=== PATIENT | female | born 1985 | race Caucasian/White ===

== ENCOUNTER 2017-07-25 17:45 | Emergency (ER) | payer MEDICAID ==
[~2017-07-25] VITALS: Ht 170.2 cm; Wt 104.2 kg
[~2017-07-25 17:45] MED LIST: ACYC5CRE2 TP; ALBU8HFA PO; CEPH500T PO; DIPH-423 PO; FLO110IN IH; FLUO20CA39 PO; HYDR-3717 PO; HYDR-565 PO; IBUP-24 PO; NITR100C6 PO; NORCO10T PO; OMEP20CA4 PO; ONDA8TAB6 PO; ONDA8TAB9 PO; ZOF4T PO
[2017-07-25] MEDS ORDERED: ACYC5CRE2 TP (18:12)
[2017-07-25] MEDS ORDERED: ACYC-202 PO (18:12)
[2017-07-25] MEDS ORDERED: GABA300C PO (18:13)
[2017-07-25] MEDS ORDERED: TRIF7.5D6 EACHEYE (18:13)
[2017-07-25 18:21] VITALS: BP 204/108
== END 2017-07-25 18:20 | disposition home or self-care (01) ==
LOC: ER 17:46
DX: B02.7 Disseminated zoster (principal); B02.23 Postherpetic polyneuropathy; J45.909 Unspecified asthma, uncomplicated; C56.9 Malignant neoplasm of unspecified ovary; C50.919 Malignant neoplasm of unspecified site of unspecified female breast; Z90.710 Acquired absence of both cervix and uterus; Z88.0 Allergy status to penicillin; Z88.2 Allergy status to sulfonamides; Z88.1 Allergy status to other antibiotic agents; Z88.8 Allergy status to other drugs, medicaments and biological substances; Z79.899 Other long term (current) drug therapy; Z56.0 Unemployment, unspecified
CPT/HCPCS: 99283

== ENCOUNTER 2018-05-21 23:52 | Emergency (ER) | payer MEDICAID ==
[~2018-05-21] VITALS: Ht 170.2 cm; Wt 94.0 kg
[~2018-05-21 23:52] MED LIST changes: +GABA300C PO; +HYDR-4353 PO; -HYDR-565 PO; +TRIF7.5D6 EACHEYE
[2018-05-21 23:55] VITALS: BP 184/119
[2018-05-22] MEDS ORDERED: CLIN150C8 PO (00:14)
[2018-05-22] MEDS ORDERED: HYDR-4383 PO (00:14)
[2018-05-22] MEDS ORDERED: HYDROcodone/acetaminophen 5mg/325mg tablet PO ONE (00:15)
[2018-05-22] MEDS ORDERED: clindamycin 150mg capsule PO ONE (00:15)
[2018-05-22] MEDS ORDERED: ondansetron 4mg rapidly disintigrating tab PO ONE (00:30)
== END 2018-05-22 01:04 | disposition home or self-care (01) ==
LOC: ER 23:53
DX: K04.7 Periapical abscess without sinus (principal); J45.909 Unspecified asthma, uncomplicated; Z88.0 Allergy status to penicillin; Z88.2 Allergy status to sulfonamides; Z88.1 Allergy status to other antibiotic agents; Z88.8 Allergy status to other drugs, medicaments and biological substances; Z79.899 Other long term (current) drug therapy; Z56.0 Unemployment, unspecified; Z85.3 Personal history of malignant neoplasm of breast; Z85.43 Personal history of malignant neoplasm of ovary; Z85.41 Personal history of malignant neoplasm of cervix uteri; Z90.710 Acquired absence of both cervix and uterus
CPT/HCPCS: 99284

== ENCOUNTER 2018-09-30 01:14 | Emergency (ER) | payer MEDICAID ==
[~2018-09-30] VITALS: Ht 170.2 cm; Wt 85.5 kg
[~2018-09-30 01:14] MED LIST changes: +CLIN150C8 PO; +HYDR-4383 PO
[2018-09-30 01:40] LABS: BASOPHILS # (AUTO) 0.1 X10'3 (0-0.2); BASOPHILS % (AUTO) 0.8 % (0-1); EOSINOPHILS # (AUTO) 0.1 X10'3 (0-0.9); EOSINOPHILS % (AUTO) 1.1 % (0-6); HEMATOCRIT 41.3 % (35.0-45.0); HEMOGLOBIN 14.3 g/dl (12.0-16.0); LYMPHOCYTES # (AUTO) 2.6 X10'3 (1.1-4.8); MEAN CORPUSCULAR HEMOGLOBIN 30.7 PG (27.0-31.0); MEAN CORPUSCULAR HGB CONC 34.6 g/dL (33.0-36.5); MEAN CORPUSCULAR VOLUME 88.5 FL (78-98); MEAN PLATELET VOLUME 7.3 FL (7.4-10.4); MONOCYTES # (AUTO) 0.7 X10'3 (0-0.9); MONOCYTES % (AUTO) 6.9 % (2-12); NEUTROPHILS # (AUTO) 7.2 X10'3 (1.8-7.7); NEUTROPHILS % (AUTO) 67.2 % (42-75); PLATELET COUNT 321 X10'3 (140-440); RED BLOOD COUNT 4.66 X10'6 (4.20-5.60); RED CELL DISTRIBUTION WIDTH 12.4 % (11.5-14.5); WHITE BLOOD COUNT 10.8 X10'3 (4.5-11.0)
[2018-09-30 01:53] LABS: PARTIAL THROMBOPLASTIN TIME 27 SECONDS (22-32); PROTHROMBIN TIME 9.8 SECONDS (9.0-12.0)
[2018-09-30 01:57] LABS: ALANINE AMINOTRANSFERASE 20 U/L (12-78); ALBUMIN 3.6 G/DL (3.4-5.0); ALKALINE PHOSPHATASE 97 IU/L (46-116); ANION GAP 7 (8-16); ASPARTATE AMINO TRANSFERASE 11 U/L (10-37); BILIRUBIN,TOTAL 0.2 MG/DL (0.1-1.0); BLOOD UREA NITROGEN 14 MG/DL (7-18); BUN/CREATININE RATIO 15.2 (6.6-38.0); CALCIUM 8.9 MG/DL (8.5-10.1); CHLORIDE 106 MMOL/L (99-107); CREATININE 0.92 MG/DL (0.40-0.90); GLUCOSE 158 MG/DL (70-104); POTASSIUM 3.4 MMOL/L (3.5-5.1); SODIUM 141 MMOL/L (135-145); TOTAL CARBON DIOXIDE 27.7 MMOL/L (24-32); TOTAL PROTEIN 7.1 G/DL (6.4-8.2); eGFR 70 ML/MIN
[2018-09-30] MEDS ORDERED: ketorolac trometh inj. 60 MG/2 ML VIAL IM ONE (02:35)
[2018-09-30] MEDS ORDERED: acetaminophen 325mg tablet PO ONE (02:35)
[2018-09-30 02:43] LABS: D-DIMER < 0.19 MG/L FEU (0-0.50)
[2018-09-30 03:09] VITALS: BP 156/110
== END 2018-09-30 03:11 | disposition home or self-care (01) ==
LOC: ER 01:15
DX: R07.89 Other chest pain (principal); R55 Syncope and collapse; R42 Dizziness and giddiness; J45.909 Unspecified asthma, uncomplicated; Z90.710 Acquired absence of both cervix and uterus; Z56.0 Unemployment, unspecified; Z85.3 Personal history of malignant neoplasm of breast; Z85.43 Personal history of malignant neoplasm of ovary; Z87.898 Personal history of other specified conditions; Z88.0 Allergy status to penicillin; Z88.2 Allergy status to sulfonamides; Z88.1 Allergy status to other antibiotic agents; Z88.8 Allergy status to other drugs, medicaments and biological substances; Z79.899 Other long term (current) drug therapy
CPT/HCPCS: 36415; 71045; 80053; 84484; 85025; 85379; 85610; 85730; 93005; 96372; 99284; J1885

== ENCOUNTER 2019-03-30 02:25 | Emergency (ER) | payer MEDICAID, OTHER ==
[~2019-03-30] VITALS: Ht 170.2 cm; Wt 101.0 kg
[2019-03-30] MEDS ORDERED: ondansetron/PF 4mg/2ml inj IV ONE (02:50)
[2019-03-30] MEDS ORDERED: morphine 10mg/ml inj. IV ONE (02:50)
[2019-03-30] MEDS ORDERED: diphenhydrAMINE 50 mg/ml inj IV ONE (03:05)
--- NOTE | 2019-03-30 03:07 | NUR ---
piv in place, labs drawn, given morphine 8 mg, zofran 4 mg and benedryl 25 mg 9pt reports she gets very itchy w/morphine). pts neighbor remains at bedside. pt is calm and no longer crying and eyes closed lying on the bed. states she still feels the pain but is much improved.
[2019-03-30 03:09] LABS: BASOPHILS # (AUTO) 0.1 X10'3 (0-0.2); BASOPHILS % (AUTO) 1.1 % (0-1); EOSINOPHILS # (AUTO) 0.2 X10'3 (0-0.9); EOSINOPHILS % (AUTO) 1.9 % (0-6); HEMATOCRIT 42.3 % (35.0-45.0); HEMOGLOBIN 14.6 g/dl (12.0-16.0); LYMPHOCYTES # (AUTO) 2.7 X10'3 (1.1-4.8); LYMPHOCYTES % (AUTO) 21.7 % (21-51); MEAN CORPUSCULAR HEMOGLOBIN 30.3 PG (27.0-31.0); MEAN CORPUSCULAR HGB CONC 34.4 g/dL (33.0-36.5); MEAN CORPUSCULAR VOLUME 88.1 FL (78-98); MEAN PLATELET VOLUME 7.3 FL (7.4-10.4); MONOCYTES # (AUTO) 0.6 X10'3 (0-0.9); NEUTROPHILS # (AUTO) 8.6 X10'3 (1.8-7.7); NEUTROPHILS % (AUTO) 70.3 % (42-75); PLATELET COUNT 333 X10'3 (140-440); RED BLOOD COUNT 4.81 X10'6 (4.20-5.60); RED CELL DISTRIBUTION WIDTH 12.8 % (11.5-14.5); WHITE BLOOD COUNT 12.3 X10'3 (4.5-11.0)
[2019-03-30 03:22] LABS: ALANINE AMINOTRANSFERASE 33 U/L (12-78); ALBUMIN 3.6 G/DL (3.4-5.0); ALBUMIN/GLOBULIN RATIO 0.9 (1.1-1.5); ALKALINE PHOSPHATASE 97 IU/L (46-116); ANION GAP 8 (8-16); ASPARTATE AMINO TRANSFERASE 20 U/L (10-37); BILIRUBIN,TOTAL 0.3 MG/DL (0.1-1.0); BLOOD UREA NITROGEN 10 MG/DL (7-18); CALCIUM 8.8 MG/DL (8.5-10.1); CHLORIDE 104 MMOL/L (99-107); CREATININE 0.77 MG/DL (0.40-0.90); GLUCOSE 142 MG/DL (70-104); POTASSIUM 3.7 MMOL/L (3.5-5.1); SODIUM 139 MMOL/L (135-145); TOTAL CARBON DIOXIDE 26.9 MMOL/L (24-32); TOTAL PROTEIN 7.5 G/DL (6.4-8.2); eGFR 85 ML/MIN
[2019-03-30 04:30] VITALS: BP 134/72
[2019-03-30] MEDS ORDERED: ONDA4TAB6 PO (04:50)
[2019-03-30] MEDS ORDERED: KETO10TA2 PO (04:50)
[2019-03-30 05:50] LABS: CLARITY,URINE CLOUDY (Clear); COLOR,URINE STRAW (Yellow); GLUCOSE, URINE NEGATIVE (Neg); KETONES,URINE NEGATIVE (Neg); LEUKOCYTE ESTERASE ,URINE NEGATIVE (Neg); NITRITES, URINE NEGATIVE (Neg); OCCULT BLOOD,URINE MODERATE (Neg); PROTEIN,URINE NEGATIVE (Neg); UROBILINOGEN,URINE 0.2 E.U/dL (0.2-1.0)
[2019-03-30 05:55] LABS: MUCUS STRANDS MODERATE /LPF (Neg); SQUAMOUS EPITHELIAL CELL,UR MANY /LPF (FEW); UA COLLECTION TYPE CLN CATCH MIDSTREAM
[2019-03-30 05:56] LABS: BACTERIA,URINE 2+ /HPF (Neg); RBC,URINE 0-2 /HPF (0-2); WBC,URINE 0-4 /HPF (0-4)
== END 2019-03-30 05:30 | disposition home or self-care (01) ==
LOC: ER 02:25
DX: N20.1 Calculus of ureter (principal); J45.909 Unspecified asthma, uncomplicated; F41.9 Anxiety disorder, unspecified; F32.9 Major depressive disorder, single episode, unspecified; C50.919 Malignant neoplasm of unspecified site of unspecified female breast; C53.9 Malignant neoplasm of cervix uteri, unspecified; C56.9 Malignant neoplasm of unspecified ovary; Z90.710 Acquired absence of both cervix and uterus; Z56.0 Unemployment, unspecified; Z88.0 Allergy status to penicillin; Z88.2 Allergy status to sulfonamides; Z88.8 Allergy status to other drugs, medicaments and biological substances; Z79.2 Long term (current) use of antibiotics; Z79.899 Other long term (current) drug therapy
CPT/HCPCS: 36415; 74176; 80053; 81001; 85025; 85610; 96374; 96375; 99284; J1200; J2270; J2405

== ENCOUNTER 2019-06-17 16:21 | Emergency (ER) | payer MEDICAID, OTHER ==
[~2019-06-17] VITALS: Ht 171.4 cm; Wt 100.9 kg
[~2019-06-17 16:21] MED LIST changes: +KETO10TA2 PO; +LIDOcaine 1% W/epiNEPHrine 1:100,000 20ml vial ONE; +ONDA4TAB6 PO
[2019-06-17 16:53] VITALS: BP 172/111
== END 2019-06-17 18:30 | disposition home or self-care (01) ==
LOC: ER 16:22
DX: S61.210A Laceration without foreign body of right index finger without damage to nail, initial encounter (principal); J45.909 Unspecified asthma, uncomplicated; F41.9 Anxiety disorder, unspecified; F32.9 Major depressive disorder, single episode, unspecified; Z85.3 Personal history of malignant neoplasm of breast; Z85.43 Personal history of malignant neoplasm of ovary; Z90.710 Acquired absence of both cervix and uterus; Z56.0 Unemployment, unspecified; Z88.0 Allergy status to penicillin; Z88.2 Allergy status to sulfonamides; Z88.1 Allergy status to other antibiotic agents; Z88.8 Allergy status to other drugs, medicaments and biological substances; Z79.899 Other long term (current) drug therapy; W26.8XXA Contact with other sharp object(s), not elsewhere classified, initial encounter; Y93.89 Activity, other specified; Y92.89 Other specified places as the place of occurrence of the external cause; Y99.8 Other external cause status
CPT/HCPCS: 12001; 99283

== ENCOUNTER 2019-07-08 18:25 | Emergency (ER) | payer MEDICAID, OTHER ==
[~2019-07-08] VITALS: Ht 170.2 cm; Wt 97.9 kg
[~2019-07-08 18:25] MED LIST changes: -LIDOcaine 1% W/epiNEPHrine 1:100,000 20ml vial ONE
[2019-07-08] MEDS ORDERED: ondansetron 4mg rapidly disintigrating tab PO ONE (20:35)
[2019-07-08] MEDS ORDERED: dicyclomine 10 MG capsule PO ONE (20:35)
[2019-07-08] MEDS ORDERED: mag hydrox/Alum hydrox/simeth 30ml oral suspension PO ONE (20:35)
[2019-07-08 20:55] LABS: CLARITY,URINE CLEAR (Clear); COLOR,URINE YELLOW (Yellow); GLUCOSE, URINE NEGATIVE (Neg); KETONES,URINE TRACE mg/dl (Neg); LEUKOCYTE ESTERASE ,URINE NEGATIVE (Neg); NITRITES, URINE NEGATIVE (Neg); OCCULT BLOOD,URINE NEGATIVE (Neg); PROTEIN,URINE NEGATIVE (Neg); UROBILINOGEN,URINE 0.2 E.U/dL (0.2-1.0)
[2019-07-08 20:58] LABS: UA COLLECTION TYPE CLN CATCH MIDSTREAM
[2019-07-08 21:32] VITALS: BP 130/86
[2019-07-08] MEDS ORDERED: DICY10CA88 PO (21:33)
[2019-07-08] MEDS ORDERED: ONDA4TAB6 PO (21:33)
[2019-07-08] MEDS ORDERED: MAG355OR18 PO (21:33)
== END 2019-07-08 21:39 | disposition home or self-care (01) ==
LOC: ER 18:26
DX: R11.2 Nausea with vomiting, unspecified (principal); R19.7 Diarrhea, unspecified; R10.84 Generalized abdominal pain; J45.909 Unspecified asthma, uncomplicated; F41.9 Anxiety disorder, unspecified; F32.9 Major depressive disorder, single episode, unspecified; F17.200 Nicotine dependence, unspecified, uncomplicated; Z85.3 Personal history of malignant neoplasm of breast; Z85.43 Personal history of malignant neoplasm of ovary; Z90.710 Acquired absence of both cervix and uterus; Z88.0 Allergy status to penicillin; Z88.1 Allergy status to other antibiotic agents; Z88.8 Allergy status to other drugs, medicaments and biological substances; Z79.899 Other long term (current) drug therapy
CPT/HCPCS: 81003; 99284

== ENCOUNTER 2019-09-24 21:41 | Inpatient (IN) | payer MEDICAID, OTHER ==
[~2019-09-24] VITALS: Ht 170.2 cm; Wt 85.0 kg
[~2019-09-24 21:41] MED LIST changes: +DICY10CA88 PO
[2019-09-24] MEDS ORDERED: ondansetron/PF 4mg/2ml inj IV ONE (21:50)
[2019-09-24] MEDS ORDERED: ketorolac trometh. 30mg/ml inj. IV ONE (21:50)
[2019-09-24] MEDS ORDERED: normal saline 1000ML IV soln IVB ONE ×2 (21:50)
[2019-09-24] MEDS: morphine 4 MG/ML inj SYRINge IV PRN (22:06)
[2019-09-24] MEDS ORDERED: NO HOME MEDS (22:10)
[2019-09-24 22:15] LABS: BASOPHILS % (AUTO) 0.4 % (0-1); EOSINOPHILS # (AUTO) 0.2 X10'3 (0-0.9); EOSINOPHILS % (AUTO) 1.8 % (0-6); HEMATOCRIT 42.6 % (35.0-45.0); HEMOGLOBIN 14.4 g/dl (12.0-16.0); LYMPHOCYTES # (AUTO) 2.3 X10'3 (1.1-4.8); LYMPHOCYTES % (AUTO) 19.1 % (21-51); MEAN CORPUSCULAR HEMOGLOBIN 29.8 PG (27.0-31.0); MEAN CORPUSCULAR HGB CONC 33.8 g/dL (33.0-36.5); MEAN CORPUSCULAR VOLUME 88.3 FL (78-98); MEAN PLATELET VOLUME 7.4 FL (7.4-10.4); MONOCYTES # (AUTO) 0.8 X10'3 (0-0.9); MONOCYTES % (AUTO) 6.7 % (2-12); NEUTROPHILS # (AUTO) 8.7 X10'3 (1.8-7.7); PLATELET COUNT 339 X10'3 (140-440); RED BLOOD COUNT 4.82 X10'6 (4.20-5.60); RED CELL DISTRIBUTION WIDTH 12.9 % (11.5-14.5); WHITE BLOOD COUNT 12.1 X10'3 (4.5-11.0)
--- NOTE | 2019-09-24 22:22 | NUR ---
bedside commode at bedside . pt up out of bed to void for clean catch speciman
[2019-09-24] MEDS ORDERED: morphine 4 MG/ML inj SYRINge IV ONE (22:25)
[2019-09-24 22:28] LABS: ALANINE AMINOTRANSFERASE 25 U/L (12-78); ALBUMIN 3.6 G/DL (3.4-5.0); ALKALINE PHOSPHATASE 82 IU/L (46-116); ANION GAP 8 (8-16); ASPARTATE AMINO TRANSFERASE 17 U/L (10-37); BILIRUBIN,TOTAL 0.4 MG/DL (0.1-1.0); BLOOD UREA NITROGEN 15 MG/DL (7-18); BUN/CREATININE RATIO 17.2 (6.6-38.0); CALCIUM 8.9 MG/DL (8.5-10.1); CHLORIDE 105 MMOL/L (99-107); CREATININE 0.87 MG/DL (0.40-0.90); GLUCOSE 208 MG/DL (70-104); LIPASE 93 U/L (73-393); POTASSIUM 3.8 MMOL/L (3.5-5.1); SODIUM 139 MMOL/L (135-145); TOTAL PROTEIN 7.3 G/DL (6.4-8.2); eGFR 74 ML/MIN
--- NOTE | 2019-09-24 22:47 | NUR ---
ultra sound at bedside for procedure
[2019-09-24 23:07] LABS: URINE HCG NEGATIVE (NEG)
[2019-09-24 23:09] LABS: CLARITY,URINE CLOUDY (Clear); COLOR,URINE YELLOW (Yellow); GLUCOSE, URINE NEGATIVE (Neg); KETONES,URINE NEGATIVE (Neg); LEUKOCYTE ESTERASE ,URINE NEGATIVE (Neg); NITRITES, URINE NEGATIVE (Neg); OCCULT BLOOD,URINE LARGE (Neg); PH,URINE 5.5 (4.8-8.0); PROTEIN,URINE 30 mg/dl (Neg); UROBILINOGEN,URINE 0.2 E.U/dL (0.2-1.0)
[2019-09-24 23:12] LABS: UA COLLECTION TYPE CLN CATCH MIDSTREAM
[2019-09-24 23:20] LABS: BACTERIA,URINE 3+ /HPF (Neg); MUCUS STRANDS MANY /LPF (Neg); RBC,URINE TNTC /HPF (0-2); SQUAMOUS EPITHELIAL CELL,UR MANY /LPF (FEW)
[2019-09-24 23:21] LABS: AMORPHOUS URATES 1+; TRANSITIONAL EPI CELLS,URINE FEW /HPF
[2019-09-25] MEDS ORDERED: DOCU-148 PO (00:05)
[2019-09-25] MEDS ORDERED: ONDA4TAB6 PO (00:05)
[2019-09-25] MEDS ORDERED: HYDR-3965 PO (00:05)
[2019-09-25 00:29] LABS: CLARITY,URINE SLIGHTLY CLOUDY (Clear); COLOR,URINE YELLOW (Yellow); GLUCOSE, URINE NEGATIVE (Neg); KETONES,URINE NEGATIVE (Neg); LEUKOCYTE ESTERASE ,URINE TRACE (Neg); NITRITES, URINE POSITIVE (Neg); OCCULT BLOOD,URINE LARGE (Neg); PROTEIN,URINE NEGATIVE (Neg); UROBILINOGEN,URINE 0.2 E.U/dL (0.2-1.0)
[2019-09-25 00:30] LABS: UA COLLECTION TYPE STRAIGHT CATH
[2019-09-25 00:44] LABS: BACTERIA,URINE 4+ /HPF (Neg); SQUAMOUS EPITHELIAL CELL,UR FEW /LPF (FEW)
[2019-09-25] MEDS ORDERED: CEPH500C5 PO (00:47)
[2019-09-25] MEDS ORDERED: cephalexin 250mg capsule PO ONE (00:50)
[2019-09-25] MEDS: morphine 4 MG/ML inj SYRINge IV PRN (00:58)
[2019-09-25] MEDS ORDERED: HYDROcodone/acetaminophen 5mg/325mg tablet PO ONE (01:00)
[2019-09-25] MEDS ORDERED: morphine 2 MG/ML inj. syringe IV PRN (02:25)
[2019-09-25] MEDS ORDERED: mag hydrox/Alum hydrox/simeth 30ml oral suspension PO PRN (02:25)
[2019-09-25] MEDS ORDERED: magnesium hydroxide 30ml (MOM) UD suspension PO PRN (02:25)
[2019-09-25] MEDS ORDERED: acetaminophen 325mg tablet PO PRN (02:25)
[2019-09-25] MEDS ORDERED: amLODIPine 5mg tablet PO ONE (02:30)
[2019-09-25] MEDS: normal saline 1000ml 1,000 ML IV SCH ×3 (02:38→22:11)
[2019-09-25] MEDS: ondansetron/PF 4mg/2ml inj IV PRN ×2 (03:55→22:59)
[2019-09-25] MEDS: morphine 2 MG/ML inj. syringe IV PRN ×6 (03:56→22:59)
--- NOTE | 2019-09-25 06:00 | NUR ---
Patient in room [facility]. I have received report from SEGUNDO Moeller and had the opportunity to ask questions and assume patient care.
[2019-09-25 07:00] VITALS: BP 131/66
--- NOTE | 2019-09-25 09:30 | NUR ---
Patient declined securing of valuables into safe.
[2019-09-25] MEDS ORDERED: ciprofloxacin 250mg tablet PO SCH (10:00)
[2019-09-25] MEDS ORDERED: CefTRIAXone/D5W-Rocephin 1gm 50 ML IV ONE (12:50)
[2019-09-25 12:54] VITALS: BP 106/68
[2019-09-25] MEDS: metoclopramide 5 mg/ml inj IV PRN (13:24)
[2019-09-25] MEDS ORDERED: normal saline 1000ml 1,000 ML IV ONE (15:55)
[2019-09-25] MEDS: ketorolac tromethamine 15mg/ml inj. IV PRN (16:29)
--- NOTE | 2019-09-25 18:00 | NUR ---
Problems reprioritized. Patient report given, questions answered & plan of care reviewed with Rebekah Beck RN.
--- NOTE | 2019-09-25 18:41 | NUR ---
Patient in room [facility]. I have received report from SEGUNDO Sherman and had the opportunity to ask questions and assume patient care. Addendum: 09/25/19 at 1841 by Maxine Joseph RN Amended: Links added.
[2019-09-25] MEDS: lactobacillus rhamnosus 10,000 MMU CELLS/CAPSULE PO SCH (19:27)
[2019-09-25 20:00] VITALS: BP 119/73
[2019-09-25] MEDS: tamsulosin 0.4mg capsule PO SCH (22:11)
[2019-09-26] VITALS: BP 144/83
[2019-09-26] MEDS: ketorolac tromethamine 15mg/ml inj. IV PRN ×2 (03:43→19:04)
--- NOTE | 2019-09-26 03:58 | NUR ---
patient noted crying and moaning in her bed and c/o mid chest pain and having trouble breathing, EKG and O2 was placed. VS were 145/91, HR108, O2 sat 98%. Hilaria Dinero saw th eEKG result with no new order. toradol was given and started to feel better,
[2019-09-26 05:53] LABS: BASOPHILS % (AUTO) 0.1 % (0-1); EOSINOPHILS % (AUTO) 0.5 % (0-6); HEMATOCRIT 34.5 % (35.0-45.0); HEMOGLOBIN 11.9 g/dl (12.0-16.0); LYMPHOCYTES # (AUTO) 0.8 X10'3 (1.1-4.8); LYMPHOCYTES % (AUTO) 9.1 % (21-51); MEAN CORPUSCULAR HEMOGLOBIN 30.5 PG (27.0-31.0); MEAN CORPUSCULAR HGB CONC 34.4 g/dL (33.0-36.5); MEAN CORPUSCULAR VOLUME 88.8 FL (78-98); MEAN PLATELET VOLUME 7.5 FL (7.4-10.4); MONOCYTES # (AUTO) 0.8 X10'3 (0-0.9); NEUTROPHILS # (AUTO) 7.5 X10'3 (1.8-7.7); NEUTROPHILS % (AUTO) 81.3 % (42-75); PLATELET COUNT 206 X10'3 (140-440); RED BLOOD COUNT 3.89 X10'6 (4.20-5.60); RED CELL DISTRIBUTION WIDTH 12.4 % (11.5-14.5); WHITE BLOOD COUNT 9.2 X10'3 (4.5-11.0)
[2019-09-26] MEDS: ondansetron/PF 4mg/2ml inj IV PRN ×2 (06:01→16:13)
[2019-09-26 06:16] LABS: ALANINE AMINOTRANSFERASE 22 U/L (12-78); ALBUMIN 2.5 G/DL (3.4-5.0); ALBUMIN/GLOBULIN RATIO 0.8 (1.1-1.5); ALKALINE PHOSPHATASE 69 IU/L (46-116); ANION GAP 7 (8-16); ASPARTATE AMINO TRANSFERASE 24 U/L (10-37); BILIRUBIN,TOTAL 0.5 MG/DL (0.1-1.0); BLOOD UREA NITROGEN 9 MG/DL (7-18); CALCIUM 7.5 MG/DL (8.5-10.1); CHLORIDE 108 MMOL/L (99-107); CREATININE 0.75 MG/DL (0.40-0.90); GLUCOSE 163 MG/DL (70-104); POTASSIUM 3.2 MMOL/L (3.5-5.1); SODIUM 139 MMOL/L (135-145); TOTAL CARBON DIOXIDE 24.3 MMOL/L (24-32); TOTAL PROTEIN 5.7 G/DL (6.4-8.2); eGFR 88 ML/MIN
--- NOTE | 2019-09-26 06:22 | NUR ---
Problems reprioritized. Patient report given, questions answered & plan of care reviewed with SEGUNDO AMBRIZ.
--- NOTE | 2019-09-26 06:37 | NUR ---
Patient in room [facility]. I have received report from SEGUNDO Welch and had the opportunity to ask questions and assume patient care.
[2019-09-26] MEDS: normal saline 1000ml 1,000 ML IV SCH (06:54)
[2019-09-26] MEDS: CefTRIAXone/D5W-Rocephin 1gm 50 ML IV SCH (06:54)
[2019-09-26] MEDS: lactobacillus rhamnosus 10,000 MMU CELLS/CAPSULE PO SCH ×2 (06:59→21:11)
[2019-09-26 08:00] VITALS: BP 119/66
[2019-09-26] MEDS ORDERED: potassium Cl 20 mEq SR tablet PO STA (08:26)
[2019-09-26] MEDS ORDERED: normal saline 1000ml 1,000 ML IV ONE (08:30)
[2019-09-26 11:25] VITALS: BP 148/86
[2019-09-26] MEDS: morphine 2 MG/ML inj. syringe IV PRN ×2 (11:43→15:39)
[2019-09-26] MEDS: potassium CL 20mEq in D5-1/2NS 1,000 ML IV SCH (16:13)
--- NOTE | 2019-09-26 18:04 | NUR ---
Problems reprioritized. Patient report given, questions answered & plan of care reviewed with SEGUNDO Welch.
--- NOTE | 2019-09-26 18:07 | NUR ---
Patient in room [facility]. I have received report from SEGUNDO AMBRIZ and had the opportunity to ask questions and assume patient care. Addendum: 09/26/19 at 1807 by Maxine Joseph RN Amended: Links added.
[2019-09-26] MEDS: metoclopramide 5 mg/ml inj IV PRN (19:04)
[2019-09-26 20:00] VITALS: BP 162/92
[2019-09-26] MEDS: tamsulosin 0.4mg capsule PO SCH (21:11)
[2019-09-26] MEDS: heparin, porcine 5000 units/ml vial SQ SCH (21:12)
[2019-09-27] VITALS: BP 136/73
[2019-09-27] MEDS: potassium CL 20mEq in D5-1/2NS 1,000 ML IV SCH ×2 (01:21→12:50)
[2019-09-27 06:04] LABS: BASOPHILS % (AUTO) 0.4 % (0-1); EOSINOPHILS % (AUTO) 0.7 % (0-6); HEMATOCRIT 33.3 % (35.0-45.0); HEMOGLOBIN 11.5 g/dl (12.0-16.0); LYMPHOCYTES # (AUTO) 1.1 X10'3 (1.1-4.8); LYMPHOCYTES % (AUTO) 20.8 % (21-51); MEAN CORPUSCULAR HEMOGLOBIN 30.4 PG (27.0-31.0); MEAN CORPUSCULAR HGB CONC 34.4 g/dL (33.0-36.5); MEAN CORPUSCULAR VOLUME 88.4 FL (78-98); MEAN PLATELET VOLUME 7.8 FL (7.4-10.4); MONOCYTES # (AUTO) 0.5 X10'3 (0-0.9); MONOCYTES % (AUTO) 9.9 % (2-12); NEUTROPHILS # (AUTO) 3.6 X10'3 (1.8-7.7); NEUTROPHILS % (AUTO) 68.2 % (42-75); PLATELET COUNT 195 X10'3 (140-440); RED BLOOD COUNT 3.77 X10'6 (4.20-5.60); RED CELL DISTRIBUTION WIDTH 12.4 % (11.5-14.5); WHITE BLOOD COUNT 5.2 X10'3 (4.5-11.0)
--- NOTE | 2019-09-27 06:13 | NUR ---
Problems reprioritized. Patient report given, questions answered & plan of care reviewed with SEGUNDO Jensen. Addendum: 09/27/19 at 0613 by Maxine Joseph RN Amended: Links added.
[2019-09-27 06:14] LABS: ALANINE AMINOTRANSFERASE 47 U/L (12-78); ALBUMIN 2.4 G/DL (3.4-5.0); ALBUMIN/GLOBULIN RATIO 0.7 (1.1-1.5); ALKALINE PHOSPHATASE 148 IU/L (46-116); ANION GAP 6 (8-16); ASPARTATE AMINO TRANSFERASE 62 U/L (10-37); BILIRUBIN,TOTAL 0.4 MG/DL (0.1-1.0); BLOOD UREA NITROGEN 8 MG/DL (7-18); BUN/CREATININE RATIO 11.4 (6.6-38.0); CALCIUM 7.7 MG/DL (8.5-10.1); CHLORIDE 107 MMOL/L (99-107); GLUCOSE 160 MG/DL (70-104); POTASSIUM 3.4 MMOL/L (3.5-5.1); SODIUM 139 MMOL/L (135-145); TOTAL CARBON DIOXIDE 25.7 MMOL/L (24-32); TOTAL PROTEIN 5.7 G/DL (6.4-8.2); eGFR > 90 ML/MIN
--- NOTE | 2019-09-27 06:40 | NUR ---
Patient in room [facility]. I have received report from Rebekah Beck RN and had the opportunity to ask questions and assume patient care.
[2019-09-27] MEDS: lactobacillus rhamnosus 10,000 MMU CELLS/CAPSULE PO SCH (07:05)
[2019-09-27] MEDS: CefTRIAXone/D5W-Rocephin 1gm 50 ML IV SCH (07:22)
[2019-09-27] MEDS: heparin, porcine 5000 units/ml vial SQ SCH (07:28)
[2019-09-27 07:32] VITALS: BP 154/89
[2019-09-27 11:00] VITALS: BP 156/89
[2019-09-27] MEDS ORDERED: potassium Cl 20 mEq SR tablet PO ONE (11:15)
[2019-09-27] MEDS ORDERED: polyethylene glycol 3350 17gm powd pack PO SCH (12:30)
[2019-09-27] MEDS ORDERED: docusate sod 100mg capsule PO SCH (12:30)
[2019-09-27] MEDS ORDERED: acetaminophen 325mg tablet PO PRN (14:05)
[2019-09-27] MEDS ORDERED: FLO0.4C PO (14:30)
[2019-09-27] MEDS ORDERED: LACT1CAP26 PO (14:30)
[2019-09-27] MEDS ORDERED: CEFD300C3 PO (14:30)
[2019-09-27] MEDS ORDERED: tamsulosin capsule PO (14:30)
--- NOTE | 2019-09-27 15:44 | NUR ---
Patient discharged home via family and taken from unit via wheelchair with x1 staff. Patient alert, oriented and in no apparent distress at time of discharge. Patient PIV removed with cannula intact. Patient took all belongings with her including discharge instructions. Patient new prescriptions were e-scripted to [facility] in [place] on [address] per patient request. Discharge instructions were discussed with patient and she stated an understanding of this. Patient was given time for questions and answers.
== END 2019-09-27 15:47 | disposition home or self-care (01) | DRG 690 ==
LOC: ER 21:42 → ED HOLD 09-25 02:56 → SUR 3N 09-25 07:27
PROVIDERS: ADMIT Internal Medicine; ATTEND Family Medicine
DX: N13.6 Pyonephrosis (principal); B96.20 Unspecified Escherichia coli [E. coli] as the cause of diseases classified elsewhere; E87.6 Hypokalemia; F17.210 Nicotine dependence, cigarettes, uncomplicated; F41.8 Other specified anxiety disorders; J45.909 Unspecified asthma, uncomplicated; L27.0 Generalized skin eruption due to drugs and medicaments taken internally; Z85.3 Personal history of malignant neoplasm of breast; Z85.41 Personal history of malignant neoplasm of cervix uteri; Z85.43 Personal history of malignant neoplasm of ovary; Z87.442 Personal history of urinary calculi; Z90.710 Acquired absence of both cervix and uterus; Z92.3 Personal history of irradiation; Y92.89 Other specified places as the place of occurrence of the external cause; Z88.0 Allergy status to penicillin; Z88.8 Allergy status to other drugs, medicaments and biological substances; Z79.899 Other long term (current) drug therapy
CPT/HCPCS: 36415; 74176; 76775; 80053; 81001; 81025; 83690; 85025; 87077; 87081; 87088; 87186; 93005; 96374; 96375; 99285; G0378; J0696; J1644; J1885; J2270; J2405; J2765; J3480; J7030

== ENCOUNTER 2022-09-12 23:42 | Emergency (ER) | payer MEDICAID ==
[~2022-09-12] VITALS: Ht 172.7 cm; Wt 100.0 kg
[~2022-09-12 23:42] MED LIST changes: -ACYC5CRE2 TP; -ALBU8HFA PO; -CEPH500T PO; -CLIN150C8 PO; -DICY10CA88 PO; -DIPH-423 PO; -FLO110IN IH; -FLUO20CA39 PO; -GABA300C PO; -HYDR-3717 PO; -HYDR-4353 PO; -HYDR-4383 PO; -IBUP-24 PO; -KETO10TA2 PO; +LACT1CAP26 PO; -NITR100C6 PO; -NORCO10T PO; -OMEP20CA4 PO; -ONDA4TAB6 PO; -ONDA8TAB6 PO; -ONDA8TAB9 PO; -TRIF7.5D6 EACHEYE; -ZOF4T PO
[2022-09-13] MEDS ORDERED: normal saline 1000ml 1,000 ML IV ONE (00:05)
[2022-09-13] MEDS ORDERED: ondansetron/PF 4mg/2ml inj IV ONE (00:20)
[2022-09-13] MEDS ORDERED: morphine 4 MG/ML inj SYRINge IV ONE (00:20)
[2022-09-13 00:38] LABS: BASOPHILS # (AUTO) 0.1 X10'3 (0-0.2); BASOPHILS % (AUTO) 0.6 % (0-1); EOSINOPHILS # (AUTO) 0.4 X10'3 (0-0.9); EOSINOPHILS % (AUTO) 3.7 % (0-6); HEMATOCRIT 45.7 % (35.0-45.0); HEMOGLOBIN 16.1 g/dl (12.0-16.0); LYMPHOCYTES # (AUTO) 2.9 X10'3 (1.1-4.8); LYMPHOCYTES % (AUTO) 26.8 % (21-51); MEAN CORPUSCULAR HEMOGLOBIN 31.4 PG (27.0-31.0); MEAN CORPUSCULAR HGB CONC 35.3 g/dL (33.0-36.5); MEAN PLATELET VOLUME 7.1 FL (7.4-10.4); MONOCYTES # (AUTO) 0.4 X10'3 (0-0.9); MONOCYTES % (AUTO) 3.7 % (2-12); NEUTROPHILS % (AUTO) 65.2 % (42-75); PLATELET COUNT 360 X10'3 (140-440); RED BLOOD COUNT 5.14 X10'6 (4.20-5.60); RED CELL DISTRIBUTION WIDTH 12.5 % (11.5-14.5); WHITE BLOOD COUNT 10.7 X10'3 (4.5-11.0)
[2022-09-13] MEDS ORDERED: iohexol 300mg/ml 100ml inj. ONE (00:40)
[2022-09-13 00:59] LABS: ALANINE AMINOTRANSFERASE 20 U/L (12-78); ALBUMIN 3.8 G/DL (3.4-5.0); ALKALINE PHOSPHATASE 114 IU/L (46-116); ANION GAP 8 (8-16); ASPARTATE AMINO TRANSFERASE 18 U/L (10-37); BILIRUBIN,TOTAL 0.4 MG/DL (0.1-1.0); BLOOD UREA NITROGEN 11 MG/DL (7-18); BUN/CREATININE RATIO 20.8 (10.0-20.0); CALCIUM 8.8 MG/DL (8.5-10.1); CHLORIDE 101 MMOL/L (99-107); CREATININE 0.53 MG/DL (0.40-0.90); GLUCOSE 192 MG/DL (70-104); LIPASE 67 U/L (73-393); POTASSIUM 3.6 MMOL/L (3.5-5.1); SODIUM 138 MMOL/L (135-145); TOTAL CARBON DIOXIDE 29.1 MMOL/L (24-32); TOTAL PROTEIN 7.6 G/DL (6.4-8.2); eGFR > 90 ML/MIN
[2022-09-13] MEDS ORDERED: fentaNYL/PF 50MCG/1 ML 2ML syringe IV ONE (01:15)
[2022-09-13 02:08] LABS: URINE HCG NEGATIVE (NEG)
[2022-09-13 02:20] LABS: CLARITY,URINE CLEAR (Clear); COLOR,URINE YELLOW (Yellow); GLUCOSE, URINE 100 mg/dl (Neg); KETONES,URINE NEGATIVE (Neg); LEUKOCYTE ESTERASE ,URINE NEGATIVE (Neg); NITRITES, URINE NEGATIVE (Neg); OCCULT BLOOD,URINE NEGATIVE (Neg); PROTEIN,URINE NEGATIVE (Neg); UA COLLECTION TYPE CLN CATCH MIDSTREAM; UROBILINOGEN,URINE 0.2 E.U/dL (0.2-1.0)
[2022-09-13 02:48] VITALS: BP 152/72
== END 2022-09-13 02:49 | disposition home or self-care (01) ==
LOC: ER 23:43
DX: R10.31 Right lower quadrant pain (principal); J45.909 Unspecified asthma, uncomplicated; Z88.0 Allergy status to penicillin; Z88.1 Allergy status to other antibiotic agents; Z90.710 Acquired absence of both cervix and uterus
CPT/HCPCS: 36415; 74177; 80053; 81003; 81025; 83690; 85025; 96361; 96374; 96375; 99285; J2270; J2405; J3010; J3490; J7030; Q9967

== ENCOUNTER 2023-08-22 00:23 | Emergency (ER) | payer MEDICAID, OTHER ==
[~2023-08-22] VITALS: Ht 175.3 cm; Wt 79.4 kg
[2023-08-22 00:27] VITALS: TEMP 99.6
[2023-08-22] MEDS: normal saline 1000ML IV soln IVB ONE (01:16)
[2023-08-22] MEDS: cefepime 2g/NS 100ml ADVANTAGE 100 ML IV SCH (01:36)
[2023-08-22 03:41] LABS: BASOPHILS % (AUTO) 0.3 % (0-1); EOSINOPHILS % (AUTO) 0.2 % (0-6); HEMATOCRIT 38.8 % (35.0-45.0); HEMOGLOBIN 13.4 g/dl (12.0-16.0); LYMPHOCYTES # (AUTO) 0.6 X10'3 (1.1-4.8); LYMPHOCYTES % (AUTO) 10.4 % (21-51); MEAN CORPUSCULAR HEMOGLOBIN 30.8 PG (27.0-31.0); MEAN CORPUSCULAR HGB CONC 34.5 g/dL (33.0-36.5); MEAN CORPUSCULAR VOLUME 89.1 FL (78-98); MEAN PLATELET VOLUME 7.3 FL (7.4-10.4); MONOCYTES # (AUTO) 0.8 X10'3 (0-0.9); MONOCYTES % (AUTO) 14.1 % (2-12); NEUTROPHILS # (AUTO) 4.2 X10'3 (1.8-7.7); PLATELET COUNT 200 X10'3 (140-440); RED BLOOD COUNT 4.36 X10'6 (4.20-5.60); RED CELL DISTRIBUTION WIDTH 12.5 % (11.5-14.5); WHITE BLOOD COUNT 5.6 X10'3 (4.5-11.0)
[2023-08-22 04:09] LABS: URINE HCG NEGATIVE (NEG)
[2023-08-22 04:20] LABS: ALANINE AMINOTRANSFERASE 30 U/L (12-78); ALBUMIN 3.2 G/DL (3.4-5.0); ALBUMIN/GLOBULIN RATIO 0.9 (1.1-1.5); ALKALINE PHOSPHATASE 87 IU/L (46-116); ANION GAP 14 (8-16); ASPARTATE AMINO TRANSFERASE 22 U/L (10-37); BILIRUBIN,TOTAL 0.4 MG/DL (0.1-1.0); BLOOD UREA NITROGEN 8 MG/DL (7-18); BUN/CREATININE RATIO 11.3 (10.0-20.0); CALCIUM 7.8 MG/DL (8.5-10.1); CHLORIDE 102 MMOL/L (99-107); CREATININE 0.71 MG/DL (0.40-0.90); GLUCOSE 266 MG/DL (70-104); POTASSIUM 3.4 MMOL/L (3.5-5.1); SODIUM 137 MMOL/L (135-145); TOTAL CARBON DIOXIDE 21.2 MMOL/L (24-32); TOTAL PROTEIN 6.8 G/DL (6.4-8.2); eCRCL 111 ML/MIN; eGFR > 90 ML/MIN
[2023-08-22 04:23] LABS: BILIRUBIN,URINE NEGATIVE (Neg); CLARITY,URINE CLEAR (Clear); COLOR,URINE YELLOW (Yellow); GLUCOSE, URINE 500 mg/dl (Neg); KETONES,URINE 40 mg/dl (Neg); LEUKOCYTE ESTERASE ,URINE NEGATIVE (Neg); NITRITES, URINE NEGATIVE (Neg); OCCULT BLOOD,URINE NEGATIVE (Neg); PH,URINE 5.5 (4.8-8.0); PROTEIN,URINE NEGATIVE (Neg); UROBILINOGEN,URINE 0.2 E.U/dL (0.2-1.0)
[2023-08-22 04:26] LABS: UA COLLECTION TYPE NON-SPECIFIED
[2023-08-22] MEDS ORDERED: TAM75C PO (04:57)
[2023-08-22] MEDS: ibuprofen tablet 400 MG TABLET PO ONE (05:11)
[2023-08-22] MEDS: acetaminophen 325mg tablet PO STA (05:12)
[2023-08-22 05:35] VITALS: BP 145/75; PULSE 100; RESP 20; O2SAT 95
== END 2023-08-22 06:14 | disposition home or self-care (01) ==
LOC: ER 00:23
DX: J10.1 Influenza due to other identified influenza virus with other respiratory manifestations (principal); Z20.822 Contact with and (suspected) exposure to COVID-19
CPT/HCPCS: 36415; 71045; 80053; 81003; 81025; 83605; 84145; 85025; 87502; 87503; 87634; 87811; 93005; 96365; 99285; J0692; J7030

== ENCOUNTER 2024-04-09 01:17 | Emergency (ER) | payer OTHER ==
[~2024-04-09] VITALS: Ht 172.7 cm; Wt 93.9 kg
[2024-04-09] MEDS: acetaminophen 325mg tablet PO ONE (02:17)
[2024-04-09 02:18] VITALS: BP 155/74; PULSE 77; RESP 18; TEMP 98.7; O2SAT 98
== END 2024-04-09 02:19 | disposition home or self-care (01) ==
LOC: ER 01:17
DX: S70.212A Abrasion, left hip, initial encounter (principal); S80.812A Abrasion, left lower leg, initial encounter; J45.909 Unspecified asthma, uncomplicated; Z88.0 Allergy status to penicillin; Z88.1 Allergy status to other antibiotic agents; Z88.8 Allergy status to other drugs, medicaments and biological substances; Z85.43 Personal history of malignant neoplasm of ovary; Z90.710 Acquired absence of both cervix and uterus; Z85.41 Personal history of malignant neoplasm of cervix uteri; Z85.3 Personal history of malignant neoplasm of breast; W55.03XA Scratched by cat, initial encounter; Y93.89 Activity, other specified; Y92.89 Other specified places as the place of occurrence of the external cause; Y99.8 Other external cause status
CPT/HCPCS: 99282; A6449